=== PATIENT | female | born 1960 | race Caucasian/White ===

== ENCOUNTER 2017-09-16 20:50 | Emergency (ER) | payer MEDICAID, MEDICARE ==
[2017-09-16 20:50] VITALS: BMI 26.6
[2017-09-16] MEDS ORDERED: Alum-Mag Hydrox-Simethicone Susp (30 mL) PO STA (21:53)
[2017-09-16] MEDS ORDERED: Albuterol-Ipratrop 3 mg / 0.5 (3 ml) UD INH STA (21:53)
[2017-09-16 22:43] LABS: BASO % 0.3 % (0.0-2.0); EOS # 0.2 K/uL (0.0-0.7); EOS % 2.1 % (0.0-4.0); HEMOGLOBIN 14.4 g/dL (12.0-16.0); LYMPH # 2.3 K/uL (1.0-4.3); MEAN CELL VOLUME 84.2 fl (81.0-99.0); MEAN CORPUSCULAR HEMOGLOBIN 28.2 pg (27.0-31.0); MEAN CORPUSCULAR HGB CONC 33.5 g/dL (33.0-37.0); MEAN PLATELET VOLUME 8.3 fl (7.2-11.7); MONO # 0.8 K/uL (0.0-0.8); MONO % 7.2 % (0.0-10.0); NEUT # 8.2 K/uL (1.8-7.0); NEUT % 70.4 % (50.0-75.0); NRBC % 0.1 % (0.0-0.0); RBC 5.09 Mil/uL (3.80-5.20); RED CELL DISTRIBUTION WIDTH 15.2 % (11.5-14.5); WHITE BLOOD COUNT 11.6 K/uL (4.8-10.8)
--- NOTE | 2017-09-16 22:49 | ED PDOC ---
HPI: Chest Pain Time Seen by Provider: 09/16/17 21:16 Chief Complaint (Nursing): Chest Pain Chief Complaint (Provider): Chest Pain History Per: Patient History/Exam Limitations: no limitations Onset/Duration Of Symptoms: Days (x1) Current Symptoms Are (Timing): Still Present Additional Complaint(s): 56 year old female presents to the emergency department with a complaint of constantly burning chest pain, midsternal to lower chest with bilateral spasms that waxes and wanes, exacerbated with eating and drinking since waking up this morning. She also reports a nonproductive cough and wheezing ongoing for 1 week. Patient has some right-sided neck and head pain but notes those are chronic conditions. She denies any fever, chills, abdominal pain, vomiting or recent antibiotic use. She states that she uses a steroid inhaler daily but no recent oral steroids. PMD: Fabio Dos Santos MD Past Medical History Reviewed: Historical Data, Nursing Documentation, Vital Signs Vital Signs: Last Vital Signs Temp 97.7 F 09/16/17 21:06 Pulse 88 09/16/17 21:40 Resp 16 09/16/17 21:06 BP 142/83 09/16/17 21:06 Pulse Ox 96 09/16/17 23:00 - Medical History PMH: Arthritis, CAD, Diabetes (insulin), Fibromyalgia, HTN, Hypercholesterolemia Denies: HIV, Chronic Kidney Disease Comment Only: Hyperthyroidism (pending, was tested for), Hypothyroidism ( pending, was tested for) - Surgical History Surgical History: Cholecystectomy, Tonsillectomy - Family History Family History: States: Unknown Family Hx - Home Medications Home Medications: Ambulatory Orders Medication Instructions Recorded Bimatoprost [Lumigan] 1 drop EACHEYE HS 12/26/13 Enalapril Maleate [Enalapril] 10 mg PO DAILY 12/26/13 Liraglutide [Victoza] 1.2 mg SC DAILY 12/26/13 Tramadol Hydrochloride [Tramadol 50 mg PO BID PRN 12/26/13 HCl] Zolpidem Tartrate 10 mg PO HS PRN 12/26/13 Atorvastatin [Lipitor] 20 mg PO HS 06/12/15 Gabapentin [Neurontin] 300 mg PO QID 06/12/15 levETIRAcetam [Keppra] 500 mg PO BID 06/12/15 Canagliflozin [Invokana] 300 mg PO DAILY #0 tablet 01/22/16 Insulin Aspart/Insulin Aspar 30 units SC TID #0 ml 06/13/15 [Novolog Mix 70/30 (70/30 units/ml) 10 ml] Insulin Glargine,Hum.rec.anlog 30 unit SC HS #0 06/13/15 [Toujeo Solostar] MetFORMIN [glucoPHAGE] 1,000 mg PO BID #0 tab 06/13/15 Zolpidem [Ambien] 5 mg PO HS PRN #0 tab 06/13/15 Omeprazole Magnesium [Prilosec Otc] 20 mg PO DAILY #30 tcp 09/17/17 - Allergies Allergies/Adverse Reactions: Allergies Allergy/AdvReac Type Severity Reaction Status Date / Time No Known Allergies Allergy Verified 09/16/17 21:06 Review of Systems ROS Statement: Except As Marked, All Systems Reviewed And Found Negative Constitutional: Negative for: Fever, Chills Cardiovascular: Positive for: Chest Pain (burning on midsternal to lower chest with bilateral spasm) Respiratory: Positive for: Cough, Wheezing Gastrointestinal: Negative for: Vomiting, Abdominal Pain Musculoskeletal: Positive for: Neck Pain (right-sided -chronic) Neurological: Positive for: Headache (right-sided -chronic) Physical Exam - Reviewed Nursing Documentation Reviewed: Yes Vital Signs Reviewed: Yes - Physical Exam Appears: Positive for: Non-toxic, In Acute Distress (mildly painful) Head Exam: Positive for: ATRAUMATIC, NORMOCEPHALIC Skin: Positive for: Warm, Dry Eye Exam: Positive for: EOMI, PERRL ENT: Positive for: Pharynx Is (clear), Other (mucus membranes moist) Neck: Positive for: Painless ROM, Supple Cardiovascular/Chest: Positive for: Regular Rate, Rhythm. Negative for: Murmur Respiratory: Positive for: Wheezing (diffuse on inspiration and expiration bilaterally). Negative for: Accessory Muscle Use, Respiratory Distress Gastrointestinal/Abdominal: Positive for: Soft. Negative for: Tenderness Back: Positive for: Normal Inspection. Negative for: Muscle Spasm Extremity: Positive for: Normal ROM. Negative for: Deformity Lymphatic: Negative for: Adenopathy Neurologic/Psych: Positive for: Alert. Negative for: Motor/Sensory Deficits - Laboratory Results Result Diagrams: 09/16/17 22:10 09/16/17 22:10 - ECG ECG: Positive for: Interpreted By Me ECG Rhythm: Positive for: Normal QRS, Normal ST Segment, Sinus Rhythm O2 Sat by Pulse Oximetry: 96 (RA) Pulse Ox Interpretation: Normal Medical Decision Making Medical Decision Making: Initial Impression: Chest pain; Asthma exacerbation Differential Diagnosis: Reflux; Esophagitis; Pneumonia; Bronchitis Initial Plan: * EKG * BNP * CMP * Magnesium * Phosphorous * Troponin I * Urine dipstick * CBC * D dimer * PTT * PT * CXR * Duoneb 6ml INH * Lidocaine 2% Viscous 10ml PO * Maalox plus 30ml PO * Pepcid 40mg PO * Solu-medrol 125mg IVP * Blood culture * Influenza A B Ddimer elevated. Otherwise no clinically significant lab abnormalities EXAM: CT Angiography Chest With Intravenous Contrast CLINICAL HISTORY: 56 years old, female; Pain; Chest pain; Type not specified; Additional info: Chest pain elevated ddimer TECHNIQUE: Axial computed tomographic angiography images of the chest with intravenous contrast using pulmonary embolism protocol. All CT scans at this facility use one or more dose reduction techniques, viz.: automated exposure control; ma/kV adjustment per patient size (including targeted exams where dose is matched to indication; i.e. head); or iterative reconstruction technique. 3D and MIP reconstructed images were created and reviewed. Coronal and sagittal reformatted images were created and reviewed. CONTRAST: 95 mL of visipaque 320 administered intravenously. COMPARISON: CR - CHEST TWO VIEWS (PA/LAT) 2015-06-12 10:26 FINDINGS: Pulmonary arteries: Unremarkable. No pulmonary embolism. Aorta: No acute findings. No thoracic aortic aneurysm. Lungs: Unremarkable. No mass. No consolidation. Pleural space: Unremarkable. No significant effusion. No pneumothorax. Heart: Unremarkable. No cardiomegaly. No significant pericardial effusion. No evidence of RV dysfunction. Thyroid: The right thyroid lobe is enlarged. Bones/joints: No acute fracture. No dislocation. Soft tissues: Unremarkable. Lymph nodes: Unremarkable. No enlarged lymph nodes. Gallbladder and bile ducts: There has been a cholecystectomy. IMPRESSION: No acute intrathoracic abnormality. No pulmonary embolism. Cholecystectomy Thank you for allowing us to participate in the care of your patient. Dictated and Authenticated by: Gabi Artis MD 09/17/2017 12:58 AM Eastern Time ([place] & [place]) 1am Pt feels better. TIEN pt findings and plan of care. Stable for dc with PMD/GI follow up. Scribe Attestation: Documented by Melissa Pastor, acting as a scribe for Ariana Justice MD. Provider Scribe Attestation: All medical record entries made by the Scribe were at my direction and personally dictated by me. I have reviewed the chart and agree that the record accurately reflects my personal performance of the history, physical exam, medical decision making, and the department course for this patient. I have also personally directed, reviewed, and agree with the discharge instructions and disposition. Disposition - Clinical Impression Clinical Impression: Chest pain, Reflux esophagitis Counseled Patient/Family Regarding: Studies Performed, Diagnosis, Need For Followup, Rx Given, Smoking Cessation - Disposition Referrals: Fabio Dos Santos MD [Staff Provider] - (FOLLOW UP WITH YOUR DOCTOR IN 2-3 DAYS TO SEE HOW YOU ARE DOING) Disposition: Routine/Home Disposition Time: 12:45 Condition: IMPROVED Prescriptions: Omeprazole Magnesium [Prilosec Otc] 20 mg PO DAILY #30 tcp Instructions: Acid Reflux (Gastroesophageal Reflux Disease), Adult (DC) Forms: [employer] (Slovak)
[2017-09-16 22:53] LABS: ALB/GLOB RATIO 0.9 (1.0-2.1); ALT/SGPT 52 U/L (9-52); AST/SGOT 32 U/L (14-36); BLOOD UREA NITROGEN 14 mg/dl (7-17); GFR AFRICAN-AMERICAN > 60; GFR NON-AFRICAN AMERICAN > 60
[2017-09-16 23:04] LABS: B-TYPE NATRIURETIC PEPTIDE 32.7 pg/ml (0-900); PROTHROMBIN TIME 11.4 Seconds (9.8-13.1)
[2017-09-16] MEDS ORDERED: Albuterol-Ipratrop 3 mg / 0.5 (3 ml) UD ONE (23:05)
[2017-09-16] MEDS ORDERED: Alum-Mag Hydrox-Simethicone Susp (30 mL) ONE (23:05)
[2017-09-16] MEDS ORDERED: Iodixanol 320 MG/ML 100 ML BOTTLE IV ONE (23:27)
--- NOTE | 2017-09-17 00:59 | CT ---
EXAM: CT Angiography Chest With Intravenous Contrast CLINICAL HISTORY: 56 years old, female; Pain; Chest pain; Type not specified; Additional info: Chest pain elevated ddimer TECHNIQUE: Axial computed tomographic angiography images of the chest with intravenous contrast using pulmonary embolism protocol. All CT scans at this facility use one or more dose reduction techniques, viz.: automated exposure control; ma/kV adjustment per patient size (including targeted exams where dose is matched to indication; i.e. head); or iterative reconstruction technique. 3D and MIP reconstructed images were created and reviewed. Coronal and sagittal reformatted images were created and reviewed. CONTRAST: 95 mL of visipaque 320 administered intravenously. COMPARISON: CR - CHEST TWO VIEWS (PA/LAT) 2015-06-12 10:26 FINDINGS: Pulmonary arteries: Unremarkable. No pulmonary embolism. Aorta: No acute findings. No thoracic aortic aneurysm. Lungs: Unremarkable. No mass. No consolidation. Pleural space: Unremarkable. No significant effusion. No pneumothorax. Heart: Unremarkable. No cardiomegaly. No significant pericardial effusion. No evidence of RV dysfunction. Thyroid: The right thyroid lobe is enlarged. Bones/joints: No acute fracture. No dislocation. Soft tissues: Unremarkable. Lymph nodes: Unremarkable. No enlarged lymph nodes. Gallbladder and bile ducts: There has been a cholecystectomy. IMPRESSION: No acute intrathoracic abnormality. No pulmonary embolism. Cholecystectomy.
[2017-09-17 01:23] VITALS: RESP 18; TEMP 98
[2017-09-17 01:24] VITALS: BP 142/81; PULSE 85; O2SAT 99
--- NOTE | 2017-09-17 08:31 | RAD ---
HISTORY: COMPARISON: 11/06/2012. TECHNIQUE: Chest PA and lateral FINDINGS: LINES AND TUBES: None. LUNG AND PLEURA: The lungs are hyperinflated and clear. Lung markings accentuated. No focal consolidation. Mild bibasilar atelectasis. HEART AND MEDIASTINUM: The heart is not enlarged. The hilar and mediastinal contours are within normal limits. SKELETAL STRUCTURES: The bony structures are within normal limits for the patient's age. VISUALIZED UPPER ABDOMEN: Normal. OTHER FINDINGS: None. IMPRESSION: No active pulmonary disease. COPD.
--- NOTE | 2017-09-17 12:34 | CARD ---
APPROVED REPORT EKG Measurement Heart [id number] <Conclusion> Normal sinus rhythm Normal ECG
== END 2017-09-17 01:20 | disposition home or self-care (01) ==
LOC: H.ER 20:50
DX: K21.0 Gastro-esophageal reflux disease with esophagitis (principal); E03.9 Hypothyroidism, unspecified; E11.9 Type 2 diabetes mellitus without complications; E78.00 Pure hypercholesterolemia, unspecified; I10 Essential (primary) hypertension; I25.10 Atherosclerotic heart disease of native coronary artery without angina pectoris; M79.7 Fibromyalgia; Z79.4 Long term (current) use of insulin; Z90.49 Acquired absence of other specified parts of digestive tract; J44.9 Chronic obstructive pulmonary disease, unspecified
CPT/HCPCS: 71046; 71275; 80053; 83735; 83880; 84100; 84484; 85025; 85378; 85610; 85730; 87040; 87804; 93005; 94640; 96374; 99285; J2930; Q9967

== ENCOUNTER 2018-03-05 11:58 | Emergency (ER) | payer MEDICARE, OTHER ==
[2018-03-05 11:59] VITALS: BMI 26.6
[2018-03-05 12:03] VITALS: O2SAT 98
[2018-03-05] MEDS ORDERED: Sodium Chloride 0.9% 1,000 ML IV STA (12:27)
--- NOTE | 2018-03-05 12:38 | ED PDOC ---
HPI: Seizure Time Seen by Provider: 03/05/18 12:13 Chief Complaint (Nursing): Seizure Chief Complaint (Provider): seizure activity History Per: Patient History/Exam Limitations: no limitations Additional Complaint(s): Milka Dos Santos, a 57 year old female with past medical history of diabetes, hypertension, COPD and seizures, presents to the emergency department with seizure activity onset 3 days. Patient has been followed by neurologist for seizures and states she has been fine until 3 days ago when she noticed shaking in the left side of her face for a couple seconds at a time 3 times a day. She denies any other symptoms, LOC, blurred vision or trouble speaking. Patient has no allergies. Past Medical History Reviewed: Historical Data Vital Signs: Last Vital Signs Temp 97.9 F 03/05/18 12:00 Pulse 89 03/05/18 12:00 Resp 16 03/05/18 12:00 BP 93/65 L 03/05/18 12:00 Pulse Ox 98 03/05/18 12:00 - Medical History PMH: Arthritis, CAD, COPD, Diabetes (insulin), Fibromyalgia, HTN, Hypercholesterolemia, Seizures Denies: HIV, Chronic Kidney Disease Comment Only: Hyperthyroidism (pending, was tested for), Hypothyroidism (pending, was tested for) - Surgical History Surgical History: Cholecystectomy, Tonsillectomy - Family History Family History: States: Unknown Family Hx - Home Medications Home Medications: Ambulatory Orders Medication Instructions Recorded Bimatoprost [Lumigan] 1 drop EACHEYE HS 12/26/13 Enalapril Maleate [Enalapril] 10 mg PO DAILY 12/26/13 Liraglutide [Victoza] 1.2 mg SC DAILY 12/26/13 Tramadol Hydrochloride [Tramadol 50 mg PO BID PRN 12/26/13 HCl] Zolpidem Tartrate 10 mg PO HS PRN 12/26/13 Atorvastatin [Lipitor] 20 mg PO HS 06/12/15 Gabapentin [Neurontin] 300 mg PO QID 06/12/15 levETIRAcetam [Keppra] 500 mg PO BID 06/12/15 Canagliflozin [Invokana] 300 mg PO DAILY #0 tablet 06/13/15 Insulin Aspart/Insulin Aspar 30 units SC TID #0 ml 06/13/15 [Novolog Mix 70/30 (70/30 units/ml) 10 ml] Insulin Glargine,Hum.rec.anlog 30 unit SC HS #0 06/13/15 [Toujeo Solostar] MetFORMIN [glucoPHAGE] 1,000 mg PO BID #0 tab 06/13/15 Zolpidem [Ambien] 5 mg PO HS PRN #0 tab 06/13/15 Omeprazole Magnesium [Prilosec Otc] 20 mg PO DAILY #30 tcp 09/17/17 - Allergies Allergies/Adverse Reactions: Allergies Allergy/AdvReac Type Severity Reaction Status Date / Time No Known Allergies Allergy Verified 09/16/17 21:06 Review of Systems ROS Statement: Except As Marked, All Systems Reviewed And Found Negative Eyes: Negative for: Vision Change Neurological: Positive for: Seizures. Negative for: Change in Speech, Other (LOC) Physical Exam - Reviewed Nursing Documentation Reviewed: Yes Vital Signs Reviewed: Yes - Physical Exam Appears: Positive for: Well, Non-toxic, No Acute Distress Head Exam: Positive for: ATRAUMATIC, NORMAL INSPECTION, NORMOCEPHALIC Skin: Positive for: Normal Color, Warm, DRY Eye Exam: Positive for: EOMI, Normal appearance, PERRL ENT: Positive for: Normal ENT Inspection Neck: Positive for: Normal, Painless ROM Cardiovascular/Chest: Positive for: Regular Rate, Rhythm Respiratory: Positive for: Normal Breath Sounds. Negative for: Respiratory Distress Gastrointestinal/Abdominal: Positive for: Normal Exam, Soft Back: Positive for: Normal Inspection Extremity: Positive for: Normal ROM Neurologic/Psych: Positive for: Alert, Oriented. Negative for: Other (focal weakness, shaking) - Laboratory Results Result Diagrams: 03/05/18 13:05 03/05/18 13:05 - ECG O2 Sat by Pulse Oximetry: 98 (RA) Pulse Ox Interpretation: Normal Medical Decision Making Medical Decision Making: Time: 12:13 Initial Impression: seizures Initial Plan: --EKG --CMP --Drug screen --Magnesium --Urine dip --CBC w/ differential --Levetiracetam --Sodium chloride 1000 IV --Glucose, blood, POC Scribe Attestation: Documented by Tricia Christensen, acting as a scribe for Jennie Fletcher MD. Provider Scribe Attestation: All medical record entries made by the Scribe were at my direction and pers onally dictated by me. I have reviewed the chart and agree that the record accurately reflects my personal performance of the history, physical exam, medical decision making, and the department course for this patient. I have also personally directed, reviewed, and agree with the discharge instructions and disposition. 2.45p - patient feels slightly better. Labs with mild electrolyte and calcium alterations. Doubt significant clinical impact. EKG normal as well. Patient has an appointment with Dr. Urbina in 2 days. AGrees to keep appoinment. Disposition - Clinical Impression Clinical Impression: Seizure disorder - Patient ED Disposition Is Patient to be Admitted: No Doctor Will See Patient In The: Office Counseled Patient/Family Regarding: Diagnosis, Need For Followup - Disposition Referrals: Vishnu Tony MD [Primary Care Provider] - Raji Urbina MD [Staff Provider] - Disposition: Routine/Home Disposition Time: 14:58 Condition: STABLE Instructions: Seizures, Adult (DC) Forms: [facility] (Italian) - POA Present On Arrival: None
[2018-03-05 13:14] LABS: BASO # 0.1 K/uL (0.0-0.2); BASO % 0.6 % (0.0-2.0); EOS # 0.2 K/uL (0.0-0.7); EOS % 1.9 % (0.0-4.0); HEMOGLOBIN 15.1 g/dL (12.0-16.0); LYMPH # 2.4 K/uL (1.0-4.3); LYMPH % 20.9 % (20.0-40.0); MEAN CELL VOLUME 86.3 fl (81.0-99.0); MEAN CORPUSCULAR HEMOGLOBIN 28.8 pg (27.0-31.0); MEAN CORPUSCULAR HGB CONC 33.4 g/dL (33.0-37.0); MEAN PLATELET VOLUME 9.2 fl (7.2-11.7); MONO # 0.7 K/uL (0.0-0.8); MONO % 5.7 % (0.0-10.0); NEUT # 8.2 K/uL (1.8-7.0); NEUT % 70.9 % (50.0-75.0); RBC 5.26 Mil/uL (3.80-5.20); RED CELL DISTRIBUTION WIDTH 14.9 % (11.5-14.5); WHITE BLOOD COUNT 11.5 K/uL (4.8-10.8)
[2018-03-05] MEDS ORDERED: Insulin Regular 100 units/ml SC STA (13:25)
[2018-03-05 13:34] LABS: ALBUMIN 4.1 g/dL (3.5-5.0); CALCIUM 10.8 mg/dL (8.4-10.2)
[2018-03-05] MEDS ORDERED: Insulin Regular 100 units/ml ONE (13:38)
[2018-03-05 15:53] VITALS: BP 98/65; PULSE 86; RESP 18; TEMP 97.8
--- NOTE | 2018-03-05 23:08 | CARD ---
APPROVED REPORT Date of service: 03/05/2018 EKG Measurement Heart [id number] [id number] <Conclusion> Normal sinus rhythm Low voltage QRS Borderline ECG
== END 2018-03-05 15:36 | disposition home or self-care (01) ==
LOC: H.ER 11:58
DX: G40.909 Epilepsy, unspecified, not intractable, without status epilepticus (principal); E03.9 Hypothyroidism, unspecified; E11.9 Type 2 diabetes mellitus without complications; E78.00 Pure hypercholesterolemia, unspecified; I10 Essential (primary) hypertension; Z79.4 Long term (current) use of insulin
CPT/HCPCS: 80053; 80177; 82948; 83735; 85025; 93005; 96372; 99285; J7030

== ENCOUNTER 2018-04-17 06:15 | Day surgery (SDC) | payer MEDICARE, OTHER ==
--- NOTE | 2018-04-17 07:00 | CP.PCM.PN ---
Subjective - Date & Time of Evaluation Date of Evaluation: 04/17/18 Time of Evaluation: 06:56 - Subjective Subjective: Podiatry progress note for Dr. Rosenberg 57F seen and evaluated preoperatively in [facility] for right plantar fasciectomy and PRP grafting. Seen resting comfortably. States that she has been NPO since 7:30 PM last night. States that she has had the same surgery in the past 5 or 6 years ago. States the surgery was successful up until recently when the pain returned. States that she has most pain on the inside of her right foot when she first gets up in the morning. States she has tried icing, stretching, and antiinflammatories but nothing has helped. States she has not had any reactions to anesthesia in the past. Denies N/V/F/C/SOB/CP today and has no other pedal complaints. PMHx: IDDM, HTN, HLD PSHx: R plantar fasciectomy, gall bladder removal, hysterectomy All: NKDA Objective - Constitutional Appears: Well, Non-toxic, No Acute Distress - Head Exam Head Exam: ATRAUMATIC, NORMOCEPHALIC - Extremities Exam Additional comments: Vasc: DP and PT pulses palpable; cap refill <3 seconds to all digits; temp gradient warm to cool from proximal to distal; mild edema noted at the level of the medial calc tubercle on the right foot Derm: skin temp and turgor wnl; no open lesions or wounds present; mild eccyhmosis at the right medial arch proximally Ortho: pain on palpation at the level of the medial calc tubercle; does not travel, localized Neuro: gross and protective sensation intact b/l - Neurological Exam Neurological Exam: Alert, Awake, Oriented x3 - Psychiatric Exam Psychiatric exam: Normal Affect, Normal Mood Assessment and Plan - Assessment and Plan (Free Text) Assessment: 57F seen and evaluated in [facility] preoperatively for right foot plantar fasciectomy and PRP graft placement Plan: Pt was seen and examined in [facility] Pt NPO status was confirmed All pre-op testing and clearance in chart Pt has exhausted all conservative treatment at this time and is opting for surgical intervention Pt was explained procedure and post-operative course All pt's questions were answered to satisfaction No guarantees were made Pt understands all risks, benefits and complications of procedure Pt will follow-up with Dr. Rosenberg within 1 week of surgery
--- NOTE | 2018-04-17 07:07 | CP.SDSHP ---
Same Day Surgery H & P - History Proposed Procedure: Right foot plantar fasciectomy with PRP graft Pre-Op Diagnosis: Right foot plantar fasciitis - Allergies Allergies: Allergies No Known Allergies Allergy (Verified 04/17/18 06:52) - Physical Exam Neuro: WNL Heart: WNL Lungs: WNL GI: WNL - Impression Pt. Evaluated Today:Candidate for Anesthesia & Procedure: Yes - Date & Time Date: 04/17/18 Time: 07:07 Short Stay Discharge - Short Stay Discharge Admitting Diagnosis/Reason for Visit: M72.2/ M77.51/ M77.2/ Disposition: HOME/ ROUTINE Referrals: Vishnu Tony MD [Primary Care Provider] - Additional Instructions (Diet, Activity): -Patient in good/stable condition for discharge home -Pt to resume medications per medical reconciliation -Resume regular diet -Please keep dressing clean, dry, & intact to surgical site -Use plastic bag over bandage for showering -Wear post op shoe at all times when ambulating -Call clinic if you see signs of infection (redness, swelling, malodor) -Please make an appointment to see Dr. Rosenberg in office/clinic within 1 week for post-op check Progress Note/Discharge Note with Instructions: - Patient evaluated bedside in recovery s/p right foot plantar fasciectomy and injection of platelet-rich plasma graft. - After surgical procedure patient in NAD - (+) Void, (+) Appetite - Capillary refill time <3s and NVS intact. - Patient denies complaints at this time. - Post operative instructions and plan of care explained to patient at length. - Patient. acknowledges verbal understanding. - Patient stable for DC per podiatric surgery
[2018-04-17] MEDS ORDERED: Bupivacaine 0.5% Inj(30mL) IJ ONE (07:08)
[2018-04-17] MEDS ORDERED: Sodium Chloride 0.9% 1,000 ML IV SCH (07:15)
[2018-04-17] MEDS ORDERED: Propofol 10 mg/ml Inj (20 ML) ONE (07:17)
[2018-04-17] MEDS ORDERED: Midazolam 2 MG/2 ML VIAL ONE (07:17)
[2018-04-17] MEDS ORDERED: Lactated Ringer's 1,000 ML IV ONE ×2 (07:20→12:00)
[2018-04-17] MEDS ORDERED: ePHEDrine 50 mg/ml Inj ONE (07:24)
[2018-04-17] MEDS ORDERED: Phenylephrine 10 mg/ml Inj ONE (07:25)
[2018-04-17] MEDS ORDERED: Bupivacaine HCl 0.5% PF (30 ml) Inj ONE (07:31)
[2018-04-17] MEDS ORDERED: ceFAZolin 2 GM in Sodium Chloride 0.9% 100 ML IVPB ONE (08:00)
[2018-04-17] MEDS ORDERED: Bupivacaine 0.5% Inj(30mL) INFIL ONE (08:05)
[2018-04-17] MEDS ORDERED: Lidocaine 1% Inj (20ml) INFIL ONE (08:05)
[2018-04-17] MEDS ORDERED: Lidocaine 1% Inj (20ml) IJ ONE (08:30)
[2018-04-17] MEDS ORDERED: Lactated Ringer's 300 ML IV PRN (08:50)
--- NOTE | 2018-04-17 08:51 | PCM.SURG1 ---
Surgeon's Initial Post Op Note - Surgeon's Notes Surgeon: Dr. Rosenberg Basket Sorter: Dr. Hester PGY-2 Type of Anesthesia: IV Sedation, Local Anesthesia Administered By: Dr. Burciaga Pre-Operative Diagnosis: right foot plantar fasciitis Operative Findings: see dictation. I: 1:1 mix 1% Lidocaine plain and 0.5% Marcaine plain; 8cc 0.5% Marcaine plain post-operatively. M: 4-0 Nylon, Tenex, MTF PRP Post-Operative Diagnosis: same Operation Performed: right foot partial plantar fasciectomy, injection of platelet-rich plasma graft Specimen/Specimens Removed: plantar fascia Estimated Blood Loss: EBL {In ML}: 1 Blood Products Given: N/A Drains Used: No Drains Post-Op Condition: Good Date of Surgery/Procedure: 04/17/18 Time of Surgery/Procedure: 08:51
[2018-04-17] MEDS ORDERED: Oxycodone/Acetaminophen 5/325 mg Tab PO PRN (08:52)
[2018-04-17] MEDS: Lactated Ringer's 500 ML IV PRN ×2 (09:20→09:50)
[2018-04-17] MEDS ORDERED: Lactated Ringer's 500 ML IV PRN ×2 (09:50→11:10)
[2018-04-17] MEDS ORDERED: Lactated Ringer's 500 ML IV SCH (10:20)
[2018-04-17 10:25] VITALS: RESP 18
[2018-04-17] MEDS ORDERED: Lactated Ringer's 1,000 ML IV SCH (12:00)
[2018-04-17 13:13] VITALS: BP 90/59; PULSE 88; TEMP 97.7; O2SAT 97
--- NOTE | 2018-04-18 07:46 | PCM.OP ---
Operative Report - Operative Report Date of Surgery/Procedure: 04/17/18 Time of Surgery/Procedure: 07:45 Surgeon: Dr. Kareem Rosenberg Sales Engagement Executive: Dr. Wendy Hester PGY-2 Anesthesia/Sedation: IV sedation with local anesthesia Pre-Operative Diagnosis: right foot plantar fasciitis Post-Operative Diagnosis: same Indication for Surgery: The patient is a 57 year-old female with the above diagnoses. The patient has exhausted all conservative treatment at this time and now requests surgical intervention. The patient signed the consent after careful explanation of risks, benefits, complications and alternatives for surgical procedure. No guarantees were given nor implied. Operative Findings: Preparation: The patient was brought in to the operating room and placed on the operating room table in a supine position. Timeout was performed for identification of the correct patient and procedure. After induction of IV sedation, the patient received a total of 20mL of 1:1 mixture of 2% lidocaine plain and 0.5% Marcaine plain in a posterior tibial and calcaneal nerve block fashion to the right ankle and heel. Once local anesthesia was achieved, the right foot and ankle was then prepped and draped in normal sterile manner. No tourniquet was used during the procedure. Procedure/Operation Description: Procedure #1: Right foot percutaneous tenotomy of plantar fascia under ultrasound guidance Attention was then directed to the right heel. A sterile sleeve was placed over the ultrasound transducer and a diagnostic ultrasound was performed. Attention was then directed to the medial aspect of the calcaneus. Utilizing the ultrasound, the anatomy was identified and the diseased, thickened area was seen at the medial plantar fascia band near the calcaneal insertion. Using a #11 blade, a stab incision was created over the lateral aspect of the calcaneus. The TX2 handpiece was introduced. Once the tip was located in the hypoechoic lesion, the foot pedal was depressed and the area was debrided and tissue excised. A total of 2 minutes and 7 seconds of ultrasonic energy was delivered. Procedure #2: Injection of platelet-rich plasma graft Next, a total of 30 mL of the patient's own blood was collected. The blood was placed in a centrifuge on the back table. The centrifuge was turned on and the blood was spun. Utilizing a needle and syringe, approximately 2 mL of PRP was collected in a sterile manner. Utilizing a 18 gauge needle, the 2 mL of PRP was injected to the right heel. 4-0 nylon was used to suture the skin in a simple suture pattern. The incision site was dressed with a bandaid. Estimated Blood Loss: 1cc Blood Replaced: none Complications: none Discharge & Condition: Postoperative Condition: The patient tolerated the anesthesia and procedure well and was escorted to the recovery room with vital signs stable and neurovascular status intact to the right foot. Patient may be full weightbearing to the right lower extremity. This patient will be seen and followed by Dr. Rosenberg as an outpatient in his office.
== END 2018-04-17 13:30 | disposition home or self-care (01) ==
LOC: H.OPSURG 06:15
PROVIDERS: ATTEND Podiatrist
DX: M72.2 Plantar fascial fibromatosis (principal); M77.51 Other enthesopathy of right foot and ankle; J44.9 Chronic obstructive pulmonary disease, unspecified; E11.9 Type 2 diabetes mellitus without complications; E78.5 Hyperlipidemia, unspecified; I10 Essential (primary) hypertension; G40.909 Epilepsy, unspecified, not intractable, without status epilepticus; Z90.710 Acquired absence of both cervix and uterus
CPT/HCPCS: 0232T; 28230; 82948; J0690; J2001; J2250; J2370; J2704; J3010; J7030; J7120